=== PATIENT | male | born 1990 | race Caucasian/White ===

== ENCOUNTER 2018-11-25 19:13 | Emergency (ER) | payer MEDICAID ==
--- NOTE | 2018-11-25 19:39 | EDPHY ---
H & P Stated Complaint: EPIGASTRIC PAIN X 2 WKS Time Seen by Provider: 11/25/18 19:38 HPI/ROS: HPI: This is a 28-year-old male who presents with Chief Complaint: Epigastric pain x2 weeks Location: Epigastric Quality: Pain Duration: 2 weeks Signs and Symptoms: no fever, no nausea, no vomiting, no hematemesis, no blood in stool, no abdominal bloating, no diarrhea, no back pain, no urinary symptoms , no testicular/groin pain, no indigestion, no chest pain, no shortness of breath, + belching, no indigestion Timing: Ominous onset, gradually worsened over last 48 hr Severity: Moderate Context: Patient has a history of anxiety, hypothyroidism, out of medication x1 week due to Medicaid "hiccup", presents with 2 week history of epigastric burning pain that is nonradiating in nature. Pain has worsened over the last 48 hr. Nothing makes the pain worse or better. Notes decreased appetite and some belching but denies nausea, vomiting, diarrhea, urinary symptoms. History of gallbladder problems in his family. Denies regular alcohol use. Has been taking ibuprofen quite regularly over the last 2 weeks for the discomfort without relief. Modifying Factors: None Comment: ROS: A comprehensive 10 system review of systems is otherwise negative aside from elements mentioned in the history of present illness. MEDICAL/SURGICAL/SOCIAL HISTORY: Medical history: Hypothyroidism, anxiety Surgical history: Denies Social history: Never smoked. Family history noncontributory. CONSTITUTIONAL: Well-developed, well-nourished adult white male, awake and alert, no obvious distress HEENT: Atraumatic and normocephalic, PERRL, EOMI. Nares patent; no rhinorrhea; no nasal mucosal edema. Tympanic membranes clear. Oropharynx clear, no exudate and moist pink mucosa. Airway patent. No lymphadenopathy. No meningismus. Cardiovascular: Normal S1/S2, regular rate, regular rhythm, without murmur rub or gallop. PULMONARY/CHEST: Symmetrical and nontender. Clear to auscultation bilaterally. Good air movement. No accessory muscle usage. ABDOMEN: Soft, nondistended, moderate epigastric and right upper quadrant tenderness, no rebound, no guarding, no peritoneal signs, no masses or organomegaly. No CVAT. EXTREMITIES: 2/2 pulses, strength 5/5, no deformities, no clubbing, no cyanosis or edema. NEUROLOGICAL: no focal neuro deficits. GCS 15. SKIN: Warm and dry, no erythema. no rash. Good capillary refill. Source: Patient Exam Limitations: No limitations - Personal History Current Tetanus Diphtheria and Acellular Pertussis (TDAP): Yes - Medical/Surgical History Hx Asthma: No Hx Chronic Respiratory Disease: No Hx Diabetes: No Hx Cardiac Disease: No Hx Renal Disease: No Hx Cirrhosis: No Hx Alcoholism: No Hx HIV/AIDS: No Hx Splenectomy or Spleen Trauma: No Other PMH: HYPOTHYROIDISM, ANXIETY - Social History Smoking Status: Never smoked Constitutional: Initial Vital Signs Temperature (C) 36.9 C 11/25/18 19:24 Heart Rate 107 H 11/25/18 19:24 Respiratory Rate 16 11/25/18 19:24 Blood Pressure 126/82 H 11/25/18 19:24 O2 Sat (%) 96 11/25/18 19:24 O2 Delivery Mode Room Air Allergies/Adverse Reactions: Penicillins Allergy (Unverified 03/14/16 13:21) Home Medications: Medication Instructions Recorded Ambien 11/25/18 Citalopram 11/25/18 Pantoprazole Sodium [Protonix 40mg 40 mg PO BID #30 tab 11/25/18 (*)] Sucralfate [Carafate 1 GM (*)] 1 gm PO ACHS 7 Days tab 11/25/18 Synthroid 11/25/18 ZYRTEC 11/25/18 Medical Decision Making - Diagnostics Imaging Results: Imaging Impressions Abdomen Ultrasound 11/25/18 19:45 Impression: Normal study. Findings were conveyed to Cherie Rojas PA-C at 20:53, on 11/25/2018 using a secure [employer] text messaging system. If there is persistent clinical concern regarding the patient's right upper quadrant pain and the possibility of gallbladder dyskinesia, a nuclear medicine hepatobiliary scan and gallbladder ejection fraction could be considered. ED Course/Re-evaluation: Vital signs reviewed and show mild tachycardia. IV access, laboratory studies, EKG, ultrasound ordered EKG my read shows normal sinus rhythm of a rate of 87 beats per minute, no acute ischemic changes, no arrhythmias. 2044: Labs reviewed. No signs of leukocytosis/anemia/platelet dysfunction/ALMA/ elevated LFTs/electrolyte imbalance/pancreatitis. 2054: Called by radiologist, Dr. Rae, who reports right upper quadrant ultrasound is normal. Suspect this is GERD versus gastritis versus peptic ulcer disease Given a prescription for Protonix and Carafate with gastroenterology follow-up. This patient was seen under the supervision of my secondary supervising physician. I evaluated care for this patient independently. Discussed this patient with Dr. Ames who did not see the patient. Differential Diagnosis: Abdominal pain including but not limited to appendicitis, cholecystitis, gastritis and urinary tract infection. - Data Points Laboratory Results: Laboratory Results 11/25/18 20:11 11/25/18 19:54 11/25/18 11/25/18 20:11 19:54 WBC 8.28 10^3/uL 10^3/uL (3.80-9.50) RBC 5.39 10^6/uL 10^6/uL (4.40-6.38) Hgb 14.9 g/dL g/dL (13.7-17.5) Hct 44.7 % % (40.0-51.0) MCV 82.9 fL fL (81.5-99.8) MCH 27.6 pg L pg (27.9-34.1) MCHC 33.3 g/dL g/dL (32.4-36.7) RDW 12.9 % % (11.5-15.2) Plt Count 356 10^3/uL 10^3/uL (150-400) MPV 9.8 fL fL (8.7-11.7) Neut % (Auto) 68.4 % % (39.3-74.2) Lymph % (Auto) 21.1 % % (15.0-45.0) Cuming % (Auto) 7.5 % % (4.5-13.0) Eos % (Auto) 2.4 % % (0.6-7.6) Baso % (Auto) 0.5 % % (0.3-1.7) Nucleat RBC Rel Count 0.0 % % (0.0-0.2) Absolute Neuts (auto) 5.66 10^3/uL 10^3/uL (1.70-6.50) Absolute Lymphs (auto) 1.75 10^3/uL 10^3/uL (1.00-3.00) Absolute Monos (auto) 0.62 10^3/uL 10^3/uL (0.30-0.80) Absolute Eos (auto) 0.20 10^3/uL 10^3/uL (0.03-0.40) Absolute Basos (auto) 0.04 10^3/uL 10^3/uL (0.02-0.10) Absolute Nucleated RBC 0.00 10^3/uL 10^3/uL (0-0.01) Immature Gran % 0.1 % % (0.0-1.1) Immature Gran # 0.01 10^3/uL 10^3/uL (0.00-0.10) Sodium 135 mEq/L mEq/L (135-145) Potassium 5.2 mEq/L mEq/L (3.5-5.2) Chloride 105 mEq/L mEq/L (97-110) Carbon Dioxide 20 mEq/l L mEq/l (22-31) Anion Gap 10 mEq/L mEq/L (6-14) BUN 7 mg/dL mg/dL (7-23) Creatinine 0.9 mg/dL mg/dL (0.7-1.3) Estimated GFR > 60 Glucose 106 mg/dL H mg/dL (70-100) Calcium 9.5 mg/dL mg/dL (8.5-10.4) Total Bilirubin 1.1 mg/dL mg/dL (0.1-1.4) Conjugated Bilirubin 0.6 mg/dL H mg/dL (0.0-0.5) Unconjugated Bilirubin 0.5 mg/dL mg/dL (0.0-1.1) AST 47 IU/L IU/L (17-59) ALT 25 IU/L IU/L (21-72) Alkaline Phosphatase 80 IU/L IU/L (38-126) Total Protein 8.1 g/dL g/dL (6.3-8.2) Albumin 4.6 g/dL g/dL (3.5-5.0) Lipase 44 IU/L IU/L (23-300) TSH 4.410 uIU/mL uIU/mL (0.465-4.680) Specimen Hemolysis 176 Medications Given: Discontinued Medications Al Hydroxide/Mg Hydroxide (Maalox Susp) 30 ml PO ONCE ONE Stop: 11/25/18 19:46 Last Admin: 11/25/18 20:03 Dose: 30 ml Hyoscyamine Sulfate (Levsin, Hyomax-Sl) 0.25 mg PO ONCE ONE Stop: 11/25/18 19:46 Last Admin: 11/25/18 20:03 Dose: 0.25 mg Sodium Chloride (Ns) 1,000 mls @ 0 mls/hr IV EDNOW ONE; Wide Open PRN Reason: Protocol Stop: 11/25/18 19:46 Last Admin: 11/25/18 20:19 Dose: 1,000 mls Famotidine/Sodium Chloride (Pepcid 20 Mg (Premix)) 50 mls @ 200 mls/hr IV EDNOW ONE Stop: 11/25/18 19:59 Last Admin: 11/25/18 20:18 Dose: 50 mls Lidocaine (Lidocaine 2% Viscous) 15 ml PO ONCE ONE Stop: 11/25/18 19:46 Last Admin: 11/25/18 20:03 Dose: 15 ml Lorazepam (Ativan) 1 mg PO EDNOW ONE Stop: 11/25/18 20:03 Last Admin: 11/25/18 20:04 Dose: 1 mg Ondansetron HCl (Zofran) 4 mg IVP EDNOW ONE Stop: 11/25/18 19:46 Last Admin: 11/25/18 20:19 Dose: 4 mg Departure - Departure Disposition: Home, Routine, Self-Care Clinical Impression: GERD (gastroesophageal reflux disease) Qualifiers: Esophagitis presence: esophagitis presence not specified Qualified Code(s): K21.9 - Gastro-esophageal reflux disease without esophagitis Gastritis Qualifiers: Gastritis type: unspecified gastritis Chronicity: acute Gastritis bleeding: without bleeding Qualified Code(s): K29.00 - Acute gastritis without bleeding Condition: Good Instructions: Gastroesophageal Reflux Disease (ED), Diet for Stomach Ulcers and Gastritis (ED), Gastritis (ED), Upper Endoscopy (DC) Additional Instructions: Consume a minimum of 8-10 glasses of water or electrolyte fluid replacement drinks that include Gatorade, Powerade, Pedialyte. Eat a bland diet for the next 48 hours and then slowly advance as tolerated. Take Protonix twice daily x7 days and then every morning thereafter. Take Carafate 30 min before each meal and at bedtime x7 days Avoid NSAIDs that include ibuprofen, Motrin, Aleve, Advil. Avoid drinking alcohol. Follow-up with Gastroenterology in the next 1-2 weeks. Referrals: Liv Morgan MD [Primary Care Provider] - As per Instructions Zeke Vu MD [Medical Doctor] - As per Instructions Prescriptions: Pantoprazole Sodium [Protonix 40mg (*)] 40 mg PO BID #30 tab Sucralfate [Carafate 1 GM (*)] 1 gm PO ACHS 7 Days tab
[2018-11-25] MEDS ORDERED: NS 1,000 ML IV ONE (19:45)
[2018-11-25] MEDS ORDERED: HYOSCYAMINE SULFATE 0.125 MG TAB PO ONE (19:45)
[2018-11-25] MEDS ORDERED: MAG HYDROX/AL HYDROX/SIMETH 30 ML UDCUP PO ONE (19:45)
[2018-11-25] MEDS ORDERED: ONDANSETRON 4 MG/2 ML VIAL IVP ONE (19:45)
[2018-11-25] MEDS ORDERED: FAMOTIDINE 20 MG/NACL 50 ML IV ONE (19:45)
[2018-11-25] MEDS ORDERED: LIDOCAINE 2% VISCOUS 15 ML UDCUP PO ONE (19:45)
[2018-11-25] MEDS ORDERED: LORazepam 1 MG TAB ONE (19:59)
[2018-11-25] MEDS ORDERED: LORazepam 1 MG TAB PO ONE (20:02)
--- NOTE | 2018-11-25 20:20 | CPEKG ---
Test Reason : OPEN Blood Pressure : / mmHG Vent. Rate : 087 BPM Atrial Rate : 088 BPM P-R Int : 156 ms QRS Dur : 089 ms QT Int : 360 ms P-R-T Axes : 035 004 020 degrees QTc Int : 433 ms Sinus rhythm Confirmed by Xochitl Cazares ([id number]) on 11/25/2018 8:20:00 PM Referred By: Rebekah Ames Confirmed By:Xochitl Cazares
[2018-11-25 20:26] LABS: PLATELET COUNT 356 10^3/uL (150-400)
[2018-11-25 21:57] VITALS: BP 129/73
== END 2018-11-25 21:56 | disposition home or self-care (01) ==
DX: K21.9 Gastro-esophageal reflux disease without esophagitis (principal); K29.00 Acute gastritis without bleeding
CPT/HCPCS: 96365; J2405